=== PATIENT | male | born 1930 | race Two or more races ===

== ENCOUNTER 2017-06-21 18:20 | Inpatient (IN) | payer MEDICARE, OTHER ==
[2017-06-21] MEDS ORDERED: ALBUTEROL/IPRATROPIUM (NEB) 3 ML AMP HHN (20:00)
[2017-06-21] MEDS ORDERED: AZITHROMYCIN 500MG/NS (PMX) 250 ML IVPB (20:00)
[2017-06-21] MEDS ORDERED: DEXTROSE 50% 50 ML SYRINGE IV ×2 (20:30)
[2017-06-21] MEDS ORDERED: GLUCOSE GEL 15 GRAM TUBE BUCCAL (20:30)
[2017-06-21] MEDS ORDERED: GLUCOSE GEL 15 GRAM TUBE PO ×2 (20:30)
[2017-06-21] MEDS ORDERED: GLUCAGON 1 MG INJ IM (20:30)
[2017-06-21] MEDS: ALBUTEROL/IPRATROPIUM (NEB) 3 ML AMP HHN (20:48)
[2017-06-21] MEDS: INSULIN ASPART [NOVOLOG] 3 ML PEN SC (20:48)
[2017-06-21] MEDS ORDERED: CEFTRIAXONE 1 GM/50 ML (PMX) 50 ML IVPB (21:00)
[2017-06-21] MEDS: METHYLPREDNISOLONE 40 MG INJ IV (22:45)
[2017-06-22] MEDS: ALBUTEROL/IPRATROPIUM (NEB) 3 ML AMP HHN ×6 (01:22→20:35)
[2017-06-22] MEDS: ACCU-CHEK XX (02:00)
[2017-06-22] MEDS: METHYLPREDNISOLONE 40 MG INJ IV ×2 (09:08→20:17)
[2017-06-22] MEDS: ACARBOSE 50 MG TAB PO ×3 (09:09→17:44)
[2017-06-22] MEDS: FENOFIBRATE 145 MG TAB PO (09:09)
[2017-06-22] MEDS: LINAGLIPTIN 5 MG TABLET PO (09:09)
[2017-06-22] MEDS: GABAPENTIN 100 MG CAP NGT ×3 (09:10→20:17)
[2017-06-22] MEDS: METOPROLOL (XL) 25 MG TAB PO (09:11)
[2017-06-22] MEDS: AMLODIPINE 5 MG TAB PO (09:11)
[2017-06-22] MEDS: LOSARTAN 50 MG TAB PO (09:11)
[2017-06-22 09:25] LABS: ADD MAN DIFF? NO
[2017-06-22 09:34] LABS: WHITE BLOOD COUNT 10.7 10^3/ul (4.8-10.8)
[2017-06-22 09:34] LABS: ABNORMAL IP MESSAGE 1; BASOPHILS % 0.1 % (0.0-2.0); HEMATOCRIT 32.3 % (42.0-52.0); HEMOGLOBIN 10.7 g/dl (14.0-18.0); LYMPHOCYTES # 0.2 10^3/ul (0.8-2.9); LYMPHOCYTES % 2.1 % (15.0-51.0); MEAN CORPUSCULAR HEMOGLOBIN 31.7 pg (29.0-33.0); MEAN CORPUSCULAR HGB CONC 33.1 g/dl (32.0-37.0); MEAN CORPUSCULAR VOLUME 95.6 fl (82.0-101.0); MEAN PLATELET VOLUME 9.7 fl (7.4-10.4); MONOCYTE # 0.2 10^3/ul (0.3-0.9); MONOCYTES % 2.2 % (0.0-11.0); NEUTROPHIL # 10.2 10^3/ul (1.6-7.5); PLATELET COUNT 262 10^3/UL (140-415); POSITIVE DIFF @See below; RED BLOOD COUNT 3.38 10^6/ul (4.70-6.10); RED CELL DISTRIBUTION WIDTH 13.5 % (11.5-14.5)
[2017-06-22] MEDS: INSULIN ASPART [NOVOLOG] 3 ML PEN SC ×5 (09:37→20:19)
[2017-06-22 12:02] LABS: ANION GAP 18 (8-16); BLOOD UREA NITROGEN 28 mg/dl (7-20); CALCIUM 9.4 mg/dl (8.4-10.2); CARBON DIOXIDE 24 mmol/L (21-31); CHLORIDE 106 mmol/L (97-110); CREATININE 0.74 mg/dl (0.61-1.24); GLUCOSE 269 mg/dl (70-220); POTASSIUM 4.5 mmol/L (3.5-5.1); SODIUM 143 mmol/L (135-144)
[2017-06-22 16:02] LABS: AADO2 Arterial 127.9 mmHg (7.0-24.0); Allen Test ACCEPTAB; Arterial Base Excess -4.4 mmol/L (-3.0-3); MODE NASAL CANNULA; Site Left Radial
[2017-06-22] MEDS: AZITHROMYCIN 500MG/NS (PMX) 250 ML IVPB (17:55)
[2017-06-22] MEDS: CEFTRIAXONE 1 GM/50 ML (PMX) 50 ML IVPB (19:03)
[2017-06-22] MEDS: INSULIN GLARGINE [LANtus] 3 ML PEN SC (20:18)
[2017-06-23] MEDS: ALBUTEROL/IPRATROPIUM (NEB) 3 ML AMP HHN ×6 (00:51→21:39)
[2017-06-23] MEDS: ACCU-CHEK XX (01:46)
[2017-06-23] MEDS: ACARBOSE 50 MG TAB PO ×3 (08:15→17:18)
[2017-06-23] MEDS: INSULIN ASPART [NOVOLOG] 3 ML PEN SC ×7 (08:20→20:29)
[2017-06-23 08:25] LABS: ADD MAN DIFF? NO
[2017-06-23 08:30] LABS: WHITE BLOOD COUNT 13.1 10^3/ul (4.8-10.8)
[2017-06-23 08:30] LABS: ABNORMAL IP MESSAGE 1; BASOPHILS % 0.1 % (0.0-2.0); HEMATOCRIT 34.1 % (42.0-52.0); HEMOGLOBIN 11.2 g/dl (14.0-18.0); LYMPHOCYTES # 0.3 10^3/ul (0.8-2.9); LYMPHOCYTES % 2.6 % (15.0-51.0); MEAN CORPUSCULAR HEMOGLOBIN 31.7 pg (29.0-33.0); MEAN CORPUSCULAR HGB CONC 32.8 g/dl (32.0-37.0); MEAN CORPUSCULAR VOLUME 96.6 fl (82.0-101.0); MEAN PLATELET VOLUME 9.8 fl (7.4-10.4); MONOCYTE # 0.5 10^3/ul (0.3-0.9); MONOCYTES % 3.9 % (0.0-11.0); NEUTROPHIL # 12.2 10^3/ul (1.6-7.5); NEUTROPHILS % 92.6 % (39.0-77.0); PLATELET COUNT 312 10^3/UL (140-415); POSITIVE DIFF @See below; RED BLOOD COUNT 3.53 10^6/ul (4.70-6.10); RED CELL DISTRIBUTION WIDTH 13.6 % (11.5-14.5)
[2017-06-23] MEDS: LOSARTAN 50 MG TAB PO (08:41)
[2017-06-23] MEDS: LINAGLIPTIN 5 MG TABLET PO (08:41)
[2017-06-23] MEDS: METHYLPREDNISOLONE 40 MG INJ IV ×2 (08:41→20:19)
[2017-06-23] MEDS: FENOFIBRATE 145 MG TAB PO (08:41)
[2017-06-23] MEDS: GABAPENTIN 100 MG CAP NGT ×3 (08:42→20:19)
[2017-06-23] MEDS: METOPROLOL (XL) 25 MG TAB PO (08:42)
[2017-06-23] MEDS: AMLODIPINE 5 MG TAB PO (08:42)
[2017-06-23 08:51] LABS: ANION GAP 15 (8-16); BLOOD UREA NITROGEN 39 mg/dl (7-20); CALCIUM 9.6 mg/dl (8.4-10.2); CARBON DIOXIDE 29 mmol/L (21-31); CHLORIDE 104 mmol/L (97-110); CREATININE 0.76 mg/dl (0.61-1.24); GLUCOSE 270 mg/dl (70-220); POTASSIUM 4.6 mmol/L (3.5-5.1); SODIUM 143 mmol/L (135-144)
[2017-06-23] MEDS: CEFTRIAXONE 1 GM/50 ML (PMX) 50 ML IVPB (17:10)
[2017-06-23] MEDS: AZITHROMYCIN 500MG/NS (PMX) 250 ML IVPB (17:49)
[2017-06-23] MEDS: INSULIN GLARGINE [LANtus] 3 ML PEN SC (20:25)
[2017-06-24] MEDS: ACCU-CHEK XX (02:00)
[2017-06-24] MEDS: ALBUTEROL/IPRATROPIUM (NEB) 3 ML AMP HHN ×6 (02:00→20:34)
[2017-06-24 07:11] LABS: ADD MAN DIFF? NO
[2017-06-24 07:16] LABS: WHITE BLOOD COUNT 9.7 10^3/ul (4.8-10.8)
[2017-06-24 07:16] LABS: ABNORMAL IP MESSAGE 1; BASOPHILS % 0.1 % (0.0-2.0); HEMATOCRIT 33.9 % (42.0-52.0); HEMOGLOBIN 11.1 g/dl (14.0-18.0); LYMPHOCYTES # 0.5 10^3/ul (0.8-2.9); LYMPHOCYTES % 4.9 % (15.0-51.0); MEAN CORPUSCULAR HEMOGLOBIN 31.5 pg (29.0-33.0); MEAN CORPUSCULAR HGB CONC 32.7 g/dl (32.0-37.0); MEAN CORPUSCULAR VOLUME 96.3 fl (82.0-101.0); MEAN PLATELET VOLUME 9.9 fl (7.4-10.4); MONOCYTE # 0.4 10^3/ul (0.3-0.9); MONOCYTES % 4.3 % (0.0-11.0); NEUTROPHIL # 8.7 10^3/ul (1.6-7.5); NEUTROPHILS % 89.9 % (39.0-77.0); PLATELET COUNT 276 10^3/UL (140-415); POSITIVE DIFF @See below; RED BLOOD COUNT 3.52 10^6/ul (4.70-6.10); RED CELL DISTRIBUTION WIDTH 13.3 % (11.5-14.5)
[2017-06-24 07:51] LABS: ANION GAP 13 (8-16); BLOOD UREA NITROGEN 42 mg/dl (7-20); CALCIUM 9.3 mg/dl (8.4-10.2); CARBON DIOXIDE 31 mmol/L (21-31); CHLORIDE 104 mmol/L (97-110); CREATININE 0.74 mg/dl (0.61-1.24); GLUCOSE 232 mg/dl (70-220); POTASSIUM 4.6 mmol/L (3.5-5.1); SODIUM 143 mmol/L (135-144)
[2017-06-24] MEDS: ACARBOSE 50 MG TAB PO ×3 (07:58→17:02)
[2017-06-24] MEDS: INSULIN ASPART [NOVOLOG] 3 ML PEN SC ×7 (08:03→21:00)
[2017-06-24] MEDS: LOSARTAN 50 MG TAB PO (08:16)
[2017-06-24] MEDS: GABAPENTIN 100 MG CAP NGT ×3 (08:16→20:34)
[2017-06-24] MEDS: METHYLPREDNISOLONE 40 MG INJ IV ×2 (08:16→20:35)
[2017-06-24] MEDS: FENOFIBRATE 145 MG TAB PO (08:16)
[2017-06-24] MEDS: LINAGLIPTIN 5 MG TABLET PO (08:16)
[2017-06-24] MEDS: METOPROLOL (XL) 25 MG TAB PO (08:17)
[2017-06-24] MEDS: AMLODIPINE 5 MG TAB PO (08:17)
[2017-06-24] MEDS: CEFTRIAXONE 1 GM/50 ML (PMX) 50 ML IVPB (17:01)
[2017-06-24] MEDS: AZITHROMYCIN 500MG/NS (PMX) 250 ML IVPB (17:30)
[2017-06-24] MEDS: INSULIN GLARGINE [LANtus] 3 ML PEN SC (20:57)
[2017-06-25] MEDS: ALBUTEROL/IPRATROPIUM (NEB) 3 ML AMP HHN ×6 (01:38→20:46)
[2017-06-25] MEDS: ACCU-CHEK XX (02:00)
[2017-06-25] MEDS: ACARBOSE 50 MG TAB PO ×3 (07:45→17:13)
[2017-06-25] MEDS: INSULIN ASPART [NOVOLOG] 3 ML PEN SC ×7 (07:52→20:39)
[2017-06-25 08:11] LABS: ANION GAP 11 (8-16); BLOOD UREA NITROGEN 40 mg/dl (7-20); CALCIUM 9.1 mg/dl (8.4-10.2); CARBON DIOXIDE 33 mmol/L (21-31); CHLORIDE 103 mmol/L (97-110); GLUCOSE 270 mg/dl (70-220); POTASSIUM 4.9 mmol/L (3.5-5.1); SODIUM 142 mmol/L (135-144)
[2017-06-25 08:16] LABS: HEMOGLOBIN A1C 6.9 % (0-5.9)
[2017-06-25] MEDS: METHYLPREDNISOLONE 40 MG INJ IV (08:19)
[2017-06-25] MEDS: LINAGLIPTIN 5 MG TABLET PO (08:19)
[2017-06-25] MEDS: FENOFIBRATE 145 MG TAB PO (08:19)
[2017-06-25] MEDS: LOSARTAN 50 MG TAB PO (08:21)
[2017-06-25] MEDS: GABAPENTIN 100 MG CAP NGT ×3 (08:21→20:38)
[2017-06-25] MEDS: METOPROLOL (XL) 25 MG TAB PO (08:21)
[2017-06-25] MEDS: AMLODIPINE 5 MG TAB PO (08:22)
[2017-06-25] MEDS: CEFTRIAXONE 1 GM/50 ML (PMX) 50 ML IVPB (17:09)
[2017-06-25] MEDS: AZITHROMYCIN 500MG/NS (PMX) 250 ML IVPB (17:50)
[2017-06-25] MEDS: INSULIN GLARGINE [LANtus] 3 ML PEN SC (20:44)
[2017-06-26] MEDS: ALBUTEROL/IPRATROPIUM (NEB) 3 ML AMP HHN ×6 (00:41→20:12)
[2017-06-26] MEDS: ACCU-CHEK XX (02:00)
[2017-06-26 06:03] LABS: ADD MAN DIFF? NO
[2017-06-26 06:07] LABS: WHITE BLOOD COUNT 10.5 10^3/ul (4.8-10.8)
[2017-06-26 06:07] LABS: BASOPHILS % 0.1 % (0.0-2.0); EOSINOPHILS # 0.1 10^3/ul (0.0-0.5); EOSINOPHILS % 0.9 % (0.0-7.0); HEMATOCRIT 36.4 % (42.0-52.0); HEMOGLOBIN 12.2 g/dl (14.0-18.0); LYMPHOCYTES # 1.1 10^3/ul (0.8-2.9); LYMPHOCYTES % 10.6 % (15.0-51.0); MEAN CORPUSCULAR HEMOGLOBIN 31.9 pg (29.0-33.0); MEAN CORPUSCULAR HGB CONC 33.5 g/dl (32.0-37.0); MEAN CORPUSCULAR VOLUME 95.3 fl (82.0-101.0); MEAN PLATELET VOLUME 9.6 fl (7.4-10.4); MONOCYTE # 0.9 10^3/ul (0.3-0.9); MONOCYTES % 8.3 % (0.0-11.0); NEUTROPHIL # 8.2 10^3/ul (1.6-7.5); NEUTROPHILS % 78.3 % (39.0-77.0); PLATELET COUNT 314 10^3/UL (140-415); RED BLOOD COUNT 3.82 10^6/ul (4.70-6.10)
[2017-06-26 06:29] LABS: ANION GAP 13 (8-16); BLOOD UREA NITROGEN 34 mg/dl (7-20); CARBON DIOXIDE 31 mmol/L (21-31); CHLORIDE 99 mmol/L (97-110); CREATININE 0.71 mg/dl (0.61-1.24); GLUCOSE 150 mg/dl (70-220); POTASSIUM 4.1 mmol/L (3.5-5.1); SODIUM 139 mmol/L (135-144)
[2017-06-26] MEDS: INSULIN ASPART [NOVOLOG] 3 ML PEN SC ×7 (08:00→20:43)
[2017-06-26] MEDS: GABAPENTIN 100 MG CAP NGT ×3 (08:39→20:43)
[2017-06-26] MEDS: METOPROLOL (XL) 25 MG TAB PO (08:40)
[2017-06-26] MEDS: predniSONE 10 MG TAB PO (08:41)
[2017-06-26] MEDS: AMLODIPINE 5 MG TAB PO (08:41)
[2017-06-26] MEDS: ACARBOSE 50 MG TAB PO ×3 (08:42→17:27)
[2017-06-26] MEDS: LINAGLIPTIN 5 MG TABLET PO (08:42)
[2017-06-26] MEDS: LOSARTAN 50 MG TAB PO (08:42)
[2017-06-26] MEDS: INSULIN GLARGINE [LANtus] 3 ML PEN SC ×2 (08:47→20:42)
[2017-06-26] MEDS: FENOFIBRATE 145 MG TAB PO (09:39)
[2017-06-26] MEDS: CEFTRIAXONE 1 GM/50 ML (PMX) 50 ML IVPB (17:26)
[2017-06-26] MEDS: AZITHROMYCIN 500MG/NS (PMX) 250 ML IVPB (17:28)
[2017-06-27] MEDS: ACCU-CHEK XX
[2017-06-27] MEDS: ALBUTEROL/IPRATROPIUM (NEB) 3 ML AMP HHN ×6 (01:08→21:06)
[2017-06-27 03:41] LABS: ADD UMIC NO; UR ASCORBIC ACID NEGATIVE (NEGATIVE); UR BILIRUBIN (Dip) NEGATIVE (NEGATIVE); UR BLOOD (Dip) NEGATIVE (NEGATIVE); UR CLARITY CLEAR (CLEAR); UR COLOR STRAW (YELLOW); UR GLUCOSE (Dip) 1+ mg/dL (NEGATIVE); UR KETONES (Dip) NEGATIVE (NEGATIVE); UR LEUKOCYTE ESTERASE (Dip) NEGATIVE Leu/ul (NEGATIVE); UR NITRITE (Dip) NEGATIVE (NEGATIVE); UR SPECIFIC GRAVITY (Dip) 1.012 (1.003-1.030); UR TOTAL PROTEIN (Dip) NEGATIVE (NEGATIVE); UR UROBILINOGEN (Dip) NEGATIVE (NEGATIVE)
[2017-06-27] MEDS: INSULIN ASPART [NOVOLOG] 3 ML PEN SC ×7 (08:00→20:43)
[2017-06-27] MEDS: ACARBOSE 50 MG TAB PO ×3 (08:27→17:48)
[2017-06-27] MEDS: LINAGLIPTIN 5 MG TABLET PO (08:29)
[2017-06-27] MEDS: predniSONE 10 MG TAB PO (08:29)
[2017-06-27] MEDS: FENOFIBRATE 145 MG TAB PO (08:29)
[2017-06-27] MEDS: GABAPENTIN 100 MG CAP NGT ×3 (08:29→20:41)
[2017-06-27] MEDS: LOSARTAN 50 MG TAB PO (08:30)
[2017-06-27] MEDS: METOPROLOL (XL) 25 MG TAB PO (08:30)
[2017-06-27] MEDS: AMLODIPINE 10 MG TAB PO (08:30)
[2017-06-27] MEDS: INSULIN GLARGINE [LANtus] 3 ML PEN SC ×2 (08:38→20:46)
[2017-06-27] MEDS: CEFTRIAXONE 1 GM/50 ML (PMX) 50 ML IVPB (17:43)
[2017-06-27] MEDS: AZITHROMYCIN 500MG/NS (PMX) 250 ML IVPB (17:49)
[2017-06-28] MEDS: ACCU-CHEK XX (00:34)
[2017-06-28] MEDS: ALBUTEROL/IPRATROPIUM (NEB) 3 ML AMP HHN ×5 (00:37→17:00)
[2017-06-28] MEDS: INSULIN ASPART [NOVOLOG] 3 ML PEN SC ×5 (08:15→17:11)
[2017-06-28] MEDS: ACARBOSE 50 MG TAB PO ×3 (08:41→17:25)
[2017-06-28] MEDS: GABAPENTIN 100 MG CAP NGT ×2 (08:53→12:45)
[2017-06-28] MEDS: INSULIN GLARGINE [LANtus] 3 ML PEN SC (08:53)
[2017-06-28] MEDS: METOPROLOL (XL) 25 MG TAB PO (08:54)
[2017-06-28] MEDS: AMLODIPINE 10 MG TAB PO (08:54)
[2017-06-28] MEDS: predniSONE 10 MG TAB PO (08:54)
[2017-06-28] MEDS: LOSARTAN 50 MG TAB PO (08:54)
[2017-06-28] MEDS: LINAGLIPTIN 5 MG TABLET PO (08:55)
[2017-06-28] MEDS: FENOFIBRATE 145 MG TAB PO (08:55)
[2017-06-28 12:15] LABS: AADO2 Arterial 29.4 mmHg (7.0-24.0); Arterial Base Excess 4.4 mmol/L (-3.0-3); Arterial Blood Gas Oxygen Sat 94.6 mmHG (95.0-100.0); Arterial COHb 0.2 % (0.0-3.0); Arterial Fraction of Oxyhgb 94.1 % (93.0-99.0); Arterial HCO3 28.3 mmol/L (22.0-26.0); Arterial MetHb 0.3 % (0.0-1.5); Arterial Total Hemglobin 13.8 g/dl (12.0-18.0); Arterial pCO2 39.9 mmhg (35-45); MODE ROOM AIR; Site LB
[2017-06-28] MEDS: CEFTRIAXONE 1 GM/50 ML (PMX) 50 ML IVPB (17:26)
[2017-06-28] MEDS: AZITHROMYCIN 500MG/NS (PMX) 250 ML IVPB (18:43)
== END 2017-06-28 19:30 | disposition home health service (06) | DRG 192 ==
LOC: MS2 06-27 11:30 → MS4 18:20
PROVIDERS: Internal Medicine Nephrology
DX: J44.1 Chronic obstructive pulmonary disease with (acute) exacerbation (principal); E11.65 Type 2 diabetes mellitus with hyperglycemia; I10 Essential (primary) hypertension; E03.9 Hypothyroidism, unspecified; E78.5 Hyperlipidemia, unspecified; R09.02 Hypoxemia; J20.9 Acute bronchitis, unspecified; J44.0 Chronic obstructive pulmonary disease with (acute) lower respiratory infection; N40.0 Benign prostatic hyperplasia without lower urinary tract symptoms
CPT/HCPCS: 36600; 71045; 71250; 76856; 80048; 81003; 82803; 82962; 83036; 85025; 94640; 94664

== ENCOUNTER 2018-07-12 21:44 | Inpatient (IN) | payer OTHER, MEDICARE ==
[2018-07-12] MEDS ORDERED: ALBUTEROL/IPRATROPIUM (NEB) 3 ML AMP HHN (23:30)
[2018-07-12] MEDS ORDERED: GLUCOSE GEL 15 GRAM TUBE BUCCAL (23:45)
[2018-07-12] MEDS ORDERED: GLUCAGON 1 MG INJ IM (23:45)
[2018-07-12] MEDS ORDERED: GLUCOSE GEL 15 GRAM TUBE PO ×2 (23:45)
[2018-07-12] MEDS ORDERED: DEXTROSE 50% 50 ML SYRINGE IV ×2 (23:45)
[2018-07-13] MEDS: ACCU-CHEK XX (02:00)
[2018-07-13 06:15] LABS: ADD MAN DIFF? NO
[2018-07-13] MEDS: PANTOPRAZOLE (EC) 40 MG TAB PO (06:15)
[2018-07-13] MEDS: LEVOTHYROXINE 25 MCG TAB PO (06:15)
[2018-07-13 06:24] LABS: WHITE BLOOD COUNT 8.9 10^3/ul (4.8-10.8)
[2018-07-13 06:24] LABS: BASOPHILS % 0.4 % (0.0-2.0); EOSINOPHILS # 0.2 10^3/ul (0.0-0.5); EOSINOPHILS % 1.8 % (0.0-7.0); LYMPHOCYTES % 11.5 % (15.0-51.0); MEAN CORPUSCULAR HEMOGLOBIN 30.8 pg (29.0-33.0); MEAN CORPUSCULAR HGB CONC 33.3 g/dl (32.0-37.0); MEAN CORPUSCULAR VOLUME 92.4 fl (82.0-101.0); MEAN PLATELET VOLUME 9.8 fl (7.4-10.4); MONOCYTE # 0.8 10^3/ul (0.3-0.9); MONOCYTES % 9.3 % (0.0-11.0); NEUTROPHIL # 6.8 10^3/ul (1.6-7.5); NEUTROPHILS % 76.3 % (39.0-77.0); PLATELET COUNT 256 10^3/UL (140-415); RED BLOOD COUNT 4.22 10^6/ul (4.70-6.10); RED CELL DISTRIBUTION WIDTH 13.2 % (11.5-14.5)
[2018-07-13 06:53] LABS: ALANINE AMINOTRANSFERASE 33 IU/L (13-69); ALBUMIN 4.4 g/dl (3.3-4.9); ALBUMIN/GLOBULIN RATIO 1.37; ALKALINE PHOSPHATASE 79 IU/L (42-121); ANION GAP 9 (5-13); ASPARTATE AMINO TRANSFERASE 30 IU/L (15-46); BILIRUBIN,INDIRECT 0.6 mg/dl (0-1.1); BILIRUBIN,TOTAL 0.6 mg/dl (0.2-1.3); BLOOD UREA NITROGEN 24 mg/dl (7-20); CALCIUM 9.5 mg/dl (8.4-10.2); CARBON DIOXIDE 28 mmol/L (21-31); CHLORIDE 107 mmol/L (97-110); GLUCOSE 165 mg/dl (70-220); POTASSIUM 4.3 mmol/L (3.5-5.1); SODIUM 144 mmol/L (135-144); TOTAL PROTEIN 7.6 g/dl (6.1-8.1)
[2018-07-13] MEDS: ACETAMINOPHEN 325 MG TAB PO (07:56)
[2018-07-13] MEDS: ACARBOSE 50 MG TAB PO ×3 (08:00→17:09)
[2018-07-13] MEDS: INSULIN ASPART [NOVOLOG] 3 ML PEN SC ×5 (08:19→20:39)
[2018-07-13] MEDS: GABAPENTIN 100 MG CAP PO ×3 (08:28→20:35)
[2018-07-13] MEDS: METHYLPREDNISOLONE 40 MG INJ IV (08:28)
[2018-07-13] MEDS: METOPROLOL (XL) 25 MG TAB PO (08:29)
[2018-07-13] MEDS: LOSARTAN 50 MG TAB PO (08:29)
[2018-07-13] MEDS: LINAGLIPTIN 5 MG TABLET PO (08:29)
[2018-07-13] MEDS ORDERED: ACARBOSE 50 MG TAB PO (09:00)
[2018-07-13] MEDS ORDERED: NON-FORMULARY/PATIENT OWN MED (Sitagliptin* (Januvia*) 100 MG) PO (09:00)
[2018-07-13] MEDS: ATORVASTATIN 10 MG TAB PO (20:35)
[2018-07-13] MEDS: TAMSULOSIN (SR) 0.4 MG CAP PO (20:35)
[2018-07-13] MEDS: INSULIN GLARGINE [LANTus] (100 UNITS/ML) SYG SC (20:44)
[2018-07-13] MEDS ORDERED: NON-FORMULARY/PATIENT OWN MED (Simvastatin 20 MG) PO (21:00)
[2018-07-13 23:10] LABS: AADO2 Arterial 67.1 mmHg (7.0-24.0); Allen Test ACCEPTAB; Arterial Base Excess 0.2 mmol/L (-3.0-3); Arterial Blood Gas Oxygen Sat 95.1 mmHG (95.0-100.0); Arterial COHb 0.2 % (0.0-3.0); Arterial Fraction of Oxyhgb 94.6 % (93.0-99.0); Arterial HCO3 25.7 mmol/L (22.0-26.0); Arterial MetHb 0.3 % (0.0-1.5); Arterial pCO2 44.6 mmhg (35-45); MODE NASAL CANNULA; Site Right Radial
[2018-07-14] MEDS: ACCU-CHEK XX (02:00)
[2018-07-14] MEDS: LEVOTHYROXINE 25 MCG TAB PO (06:18)
[2018-07-14] MEDS: PANTOPRAZOLE (EC) 40 MG TAB PO (06:18)
[2018-07-14] MEDS: INSULIN ASPART [NOVOLOG] 3 ML PEN SC ×6 (08:17→17:13)
[2018-07-14] MEDS: METHYLPREDNISOLONE 40 MG INJ IV (08:18)
[2018-07-14] MEDS: GABAPENTIN 100 MG CAP PO ×2 (08:19→12:37)
[2018-07-14] MEDS: ACARBOSE 50 MG TAB PO ×3 (08:19→17:11)
[2018-07-14] MEDS: LINAGLIPTIN 5 MG TABLET PO (08:19)
[2018-07-14] MEDS: LOSARTAN 50 MG TAB PO (08:20)
[2018-07-14] MEDS: METOPROLOL (XL) 25 MG TAB PO (08:20)
[2018-07-14] MEDS: ACETAMINOPHEN 325 MG TAB PO (10:37)
== END 2018-07-14 18:25 | disposition still patient (30) | DRG 191 ==
LOC: 2NE 21:44 → 5EC 21:47
PROVIDERS: Internal Medicine Nephrology
DX: J44.1 Chronic obstructive pulmonary disease with (acute) exacerbation (principal); J84.9 Interstitial pulmonary disease, unspecified; D64.9 Anemia, unspecified; E11.65 Type 2 diabetes mellitus with hyperglycemia; E78.5 Hyperlipidemia, unspecified; E03.9 Hypothyroidism, unspecified; I10 Essential (primary) hypertension; J62.8 Pneumoconiosis due to other dust containing silica; N40.0 Benign prostatic hyperplasia without lower urinary tract symptoms; Z79.84 Long term (current) use of oral hypoglycemic drugs; Z79.52 Long term (current) use of systemic steroids
CPT/HCPCS: 36600; 71045; 80053; 82803; 82962; 85025; 87081